=== PATIENT | male | born 1990 | race Caucasian/White ===

== ENCOUNTER 2020-09-20 00:41 | Emergency (ER) | payer OTHER ==
[~2020-09-20] VITALS: Ht 180.3 cm; Wt 91.0 kg
[2020-09-20 00:41] VITALS: BP 143/67
[2020-09-20] MEDS ORDERED: BOOSTRIX/ADACEL VACCINE (DIPHTH/PERTUSS/ACELL/TETANUS) 0.5ML SYR IM ONE (02:55)
--- NOTE | 2020-09-20 03:24 | REPVR ---
PROCEDURE INFORMATION: Exam: XR Left Forearm Exam date and time: 09/20/2020 2:03 AM Age: 30 years old Clinical indication: Other: Puncture wound; Additional info: Bleeding/puncture wound TECHNIQUE: Imaging protocol: XR Left forearm. Views: 2 views. COMPARISON: No relevant prior studies available. FINDINGS: Bones/joints: No acute fracture or dislocation. Soft tissues: Normal. IMPRESSION: No acute osseous abnormality. Electronically signed by: Douglas Johnson On 09/20/2020 03:23:55 AM
== END 2020-09-20 04:03 | disposition home or self-care (01) ==
LOC: M ED 00:41
DX: S51.832A Puncture wound without foreign body of left forearm, initial encounter (principal); W25.XXXA Contact with sharp glass, initial encounter; Y92.59 Other trade areas as the place of occurrence of the external cause; Y93.89 Activity, other specified; Y99.0 Civilian activity done for income or pay; F17.210 Nicotine dependence, cigarettes, uncomplicated